=== PATIENT | female | born 1975 | race African-American/Black ===

== ENCOUNTER 2018-06-02 17:58 | Emergency (ER) | payer SELFPAY ==
[~2018-06-02] VITALS: Ht 160 cm; Wt 99.6 kg
--- NOTE | 2018-06-02 18:50 | NUR ---
SBAR report received from RN, pt in imaging at this time.
--- NOTE | 2018-06-02 19:09 | NUR ---
Dr. Aguiar at bedside to discuss ED findings and POC.
[2018-06-02 19:20] LABS: ALANINE AMINOTRANSFERASE 25 U/L (12-78); ALBUMIN 3.3 g/dL (3.4-5.0); ANION GAP 6 mmol/L (5-15); CALCIUM 8.1 mg/dL (8.5-10.1); CHLORIDE 107 mmol/L (98-107); CREATININE 0.94 mg/dL (0.55-1.02)
[2018-06-02 19:25] LABS: ALKALINE PHOSPHATASE 81 U/L (45-117); BILIRUBIN,TOTAL 0.2 mg/dL (0.2-1.0); TOTAL PROTEIN 6.7 g/dL (6.4-8.2)
[2018-06-02 19:40] LABS: MICROSCOPIC INDICATED
[2018-06-02 19:41] LABS: MD YES; MEAN CORPUSCULAR HEMOGLOBIN 24.4 pg (27.0-34.8); MEAN CORPUSCULAR HGB CONC 30.9 g/dL (32.4-35.8); MEAN PLATELET VOLUME 7.5 fL (7.4-10.4); PLATELET COUNT 333 x10^3/uL (130-400); RED BLOOD COUNT 3.65 x10^6/uL (3.82-5.3); RED CELL DISTRIBUTION WIDTH 29.6 % (9.6-15.2)
[2018-06-02 19:44] LABS: BAND#(MANUAL) 0.14 x10^3/uL; BANDS%(MANUAL) 2 % (0-7); EOS#(MANUAL) 0.56 x10^3/uL (0.0-0.4); EOS% (MANUAL) 8 % (1-7); LYMPH#(MANUAL) 3.36 x10^3/uL (1-3.4); LYMPHS% (MANUAL) 48 % (22-44); MONOS#(MANUAL) 0.28 x10^3/uL (0.3-2.7); MONOS% (MANUAL) 4 % (2-9); SEG#(MANUAL) 2.66 x10^3/uL (1.8-6.8); SEGS% (MANUAL) 38 % (42-75)
[2018-06-02 19:47] LABS: ANISOCYTOSIS 1+; MICROCYTOSIS 1+; POLYCHROMASIA 1+
[2018-06-02 19:48] LABS: CULTURE INDICATED? YES
[2018-06-02 19:48] LABS: <PLATELET ESTIMATE> ADEQUATE; <PLT MORPHOLOGY> NORMAL PLT MORPH; TEAR DROPS 1+
--- NOTE | 2018-06-02 20:04 | NUR ---
covering primary nurse, no new orders from
[2018-06-02] MEDS ORDERED: KETOROLAC 30 MG/1 ML IM ONE (20:30)
[2018-06-02] MEDS ORDERED: KETOROLAC 30 MG/1 ML ONE (20:34)
--- NOTE | 2018-06-02 20:42 | NUR ---
Pt medicated per MAR.
[2018-06-02 20:57] VITALS: BP 132/78
== END 2018-06-02 20:59 | disposition home or self-care (01) ==
LOC: ED 20:26
DX: D25.1 Intramural leiomyoma of uterus (principal)
CPT/HCPCS: 36415; 73610; 76830; 80053; 81001; 84550; 84703; 85025; 87086; 96372; 99284; J1885